=== PATIENT | female | born 1975 ===

== ENCOUNTER 2017-02-05 10:29 | Emergency (ER) | payer MEDICAID, OTHER ==
[~2017-02-05 10:29] MED LIST: EPINEPHrine HCL 1 MG/10 ML SYRG IV ONE
[2017-02-05 10:35] VITALS: BP 0/0
== END 2017-02-05 13:49 | disposition expired ==
LOC: EDBD 10:29 → EDUNIT# 10:29 → ER 10:32
DX: I46.9 Cardiac arrest, cause unspecified (principal); I10 Essential (primary) hypertension; I49.01 Ventricular fibrillation
CPT/HCPCS: 82962; 92950